=== PATIENT | male | born 2000 | race Caucasian/White ===

== ENCOUNTER 2021-07-10 00:16 | Emergency (ER) | payer MEDICAID, OTHER ==
[~2021-07-10] VITALS: Ht 180.3 cm; Wt 63.5 kg
--- NOTE | 2021-07-10 00:20 | NUR ---
PT BIBSELF C/O CHEST PAIN THAT RADIATES TO ABD X1 YEAR. PT AAOX4 BREATHING EVENLY AND UNLABORD. PT ATTACHED TO MONITOR AND POX. MD AT BEDSIDE FOR EVAL. SKIN IS WARM AND DRY. PT GIVEN BLANKET AND CALL LIGHT WITHIN REACH.
[2021-07-10] MEDS ORDERED: IBUPROFEN 600 MG TABLET ONE (00:57)
[2021-07-10] MEDS ORDERED: IBUPROFEN 200 MG TABLET ONE (00:57)
[2021-07-10 00:59] LABS: BASOPHILS # (AUTO) 0.1 K/uL (0.0-0.2); BASOPHILS % (AUTO) 1.2 % (0.0-2.0); EOSINOPHILS % (AUTO) 5.4 % (0.0-6.0); HEMATOCRIT 40 % (39-51); HEMOGLOBIN 13.7 g/dL (13.5-17.5); LYMPHOCYTES # (AUTO) 2.6 K/uL (0.8-4.8); LYMPHOCYTES % (AUTO) 32.6 % (20.0-44.0); MEAN CORPUSCULAR HGB CONC 34 g/dl (31.0-36.0); MEAN CORPUSCULAR VOLUME 88 fL (80-96); MONOCYTES # (AUTO) 0.6 K/uL (0.1-1.30); MONOCYTES % (AUTO) 7.3 % (2.0-12.0); NEUTROPHILS # (AUTO) 4.3 K/uL (1.8-8.9); NEUTROPHILS % (AUTO) 53.5 % (43.0-81.0); PLATELET COUNT (AUTO) 259 K/uL (150-450); RED BLOOD CELL COUNT(AUTO) 4.54 MIL/uL (4.5-6.0)
[2021-07-10] MEDS ORDERED: IBUPROFEN 400 MG TABLET PO ONE (01:00)
[2021-07-10 01:05] LABS: CALCIUM, SERUM 8.7 mg/dL (8.5-10.1); CARBON DIOXIDE 28 mmol/L (21-32); CHLORIDE 103 mmol/L (98-107); CREATININE 1.1 mg/dL (0.6-1.3); GLUCOSE 86 mg/dL (74-106); POTASSIUM 3.7 mmol/L (3.5-5.1); SODIUM SERUM 138 mmol/L (136-145); UREA NITROGEN, BLOOD 17 mg/dL (7-18)
[2021-07-10 01:11] LABS: ALANINE AMINOTRANSFERASE 23 U/L (12-78); ALBUMIN 4.1 g/dL (3.4-5.0); ALKALINE PHOSPHATASE 58 U/L (46-116); ASPARTATE AMINOTRANSFERASE 21 U/L (15-37); BILIRUBIN,DIRECT 0.1 mg/dL (0.0-0.2); BILIRUBIN,TOTAL 0.3 mg/dL (0.2-1.0); TOTAL PROTEIN, SERUM 7.3 g/dL (6.4-8.2)
--- NOTE | 2021-07-10 01:14 | NUR ---
XRAY AT BEDSIDE
[2021-07-10 01:39] LABS: D-DIMER 0.19 mg/L(FEU (0.17-0.50)
--- NOTE | 2021-07-10 01:57 | NUR ---
Patient discharged to home in stable condition. Written and verbal after care instructions given. Patient verbalizes understanding of instruction.
[2021-07-10 02:03] VITALS: BP 112/73
== END 2021-07-10 01:57 | disposition home or self-care (01) ==
LOC: ER 00:24
DX: R07.89 Other chest pain (principal)
CPT/HCPCS: 36415; 71045-TC; 80048-TC; 80076-TC; 84484-TC; 85025-TC; 85378-TC; 85730-TC